=== PATIENT | male | born 1960 | race Caucasian/White ===

== ENCOUNTER 2018-10-16 09:17 | Outpatient (CLI) | payer BC ==
--- NOTE | 2018-10-16 12:19 | RAD ---
3 VIEWS RIGHT SHOULDER: Date: 10/16/18 INDICATION: Right shoulder pain. COMPARISON: None. FINDINGS: There is moderate AC joint osteoarthrosis. There is mild glenohumeral osteoarthrosis. There is narrow ing of the acromiohumeral interval with subchondral cyst-like abnormality seen within the greater tub erosity of the acromial process. The right lung is clear. IMPRESSION: 1. Findings suspicious for rotator cuff insufficiency. 2. Mild glenohumeral and moderate AC joint osteoarthrosis. POS: [facility]
== END 2018-10-16 09:18 | disposition home or self-care (01) ==
LOC: BICRAD 09:17
PROVIDERS: ATTEND Family Medicine
DX: M25.511 Pain in right shoulder (principal); M19.011 Primary osteoarthritis, right shoulder

== ENCOUNTER 2018-11-22 07:36 | Outpatient (CLI) | payer BC ==
--- NOTE | 2018-11-22 08:57 | MRI ---
MRI OF RIGHT SHOULDER PERFORMED WITHOUT CONTRAST ENHANCEMENT: HISTORY: Pain in right shoulder that has been getting worse. 'FINDINGS: There are moderate AC joint hypertrophic changes present. There is a full-thickness supraspinatus tendon tear. The tendon is retracted by approximately 2.6 cm . The AP extent of the full-thickness component of the tear is approximately 1.9 cm. Some of the po sterior-most fibers of the supraspinatus tendon are still intact, although the tear does extend as an undersurface tear into the anterior fibers of the infraspinatus. The subscapularis is also torn with the superior fibers of the subscapularis tendon torn and retracte d by approximately 2 cm. I do not identify a biceps tendon, although there may be some small remnant of the tendon seen beneath the retracted subscapularis tendon. Posterior superior and superior labrum are blunted in appearance. There is some moderate atrophy of the subscapularis muscle. Only minimal atrophy of the supra- and i nfraspinatus muscles. IMPRESSION: 1. Full-thickness supraspinatus tendon tear involving almost the entire supraspinatus tendon retract ed by approximately 2.6 cm from the AP dimension of the tear and approximately 1.9 cm. There does ap pear to be continuation of the tear as a partial undersurface of the infraspinatus. 2. Complete tear of the superior fibers of the subscapularis tendon which was retracted by approxima tely 2 cm. Some of the inferior fibers were still intact. I do not definitively identify the biceps tendon. 3. Degenerative-type changes of the superior and posterior superior labrum. POS: C
== END 2018-11-22 07:37 | disposition home or self-care (01) ==
LOC: TBSIIMAG 07:36
PROVIDERS: ATTEND Orthopaedic Surgery
DX: M25.511 Pain in right shoulder (principal); M75.101 Unspecified rotator cuff tear or rupture of right shoulder, not specified as traumatic; M19.011 Primary osteoarthritis, right shoulder